=== PATIENT | female | born 1940 | race Caucasian/White ===

== ENCOUNTER 2020-05-07 21:33 | Emergency (ER) | payer MEDICARE ==
[~2020-05-07] VITALS: Ht 172.7 cm; Wt 80.7 kg
[2020-05-07 22:16] LABS: CLARITY,URINE CLEAR (CLEAR); COLOR,URINE YELLOW (YELLOW); KETONES,URINE TRACE (NEGATIVE); LEUKOCYTE ESTERASE ,URINE NEGATIVE (NEGATIVE); NITRITE,URINE NEGATIVE (NEGATIVE); PROTEIN,URINE DIPSTICK NEGATIVE (NEGATIVE); URINE UROBILINOGEN 0.2 mg/dL (0.2 - 1)
[2020-05-07 22:31] LABS: BACTERIA,URINE FEW /HPF; EPITHELIAL CELLS,URINE MODERATE /LPF; RBC,URINE 0-5 /HPF (0-5); WBC,URINE (MAN) 0-5 /HPF (0-5)
[2020-05-07] MEDS ORDERED: TETANUS/DIPHTHERIA TOX ADULT 0.5 ML SYR IM ONE (23:30)
[2020-05-08 00:49] VITALS: BP 149/70
== END 2020-05-08 00:50 | disposition home or self-care (01) ==
LOC: ER 21:35
DX: S62.666A Nondisplaced fracture of distal phalanx of right little finger, initial encounter for closed fracture (principal); M79.641 Pain in right hand; S00.83XA Contusion of other part of head, initial encounter; M25.512 Pain in left shoulder; M25.522 Pain in left elbow; M25.552 Pain in left hip; W05.0XXA Fall from non-moving wheelchair, initial encounter; Y92.098 Other place in other non-institutional residence as the place of occurrence of the external cause; I10 Essential (primary) hypertension; E11.9 Type 2 diabetes mellitus without complications; F41.9 Anxiety disorder, unspecified; K21.9 Gastro-esophageal reflux disease without esophagitis; F03.90 Unspecified dementia, unspecified severity, without behavioral disturbance, psychotic disturbance, mood disturbance, and anxiety
CPT/HCPCS: 70450; 72125; 81001; 90471; 90714; 93005; 99283

== ENCOUNTER 2020-08-20 22:33 | Inpatient (IN) | payer MEDICARE, OTHER ==
[~2020-08-20] VITALS: Ht 172.7 cm; Wt 80.7 kg
[2020-08-20] MEDS ORDERED: SODIUM CHLORIDE 0.9% 1000ML 1,000 ML IV STA (22:35)
[2020-08-20] MEDS ORDERED: PIPER-TAZ 3.375 GM 50 ML IV SCH (22:45)
[2020-08-20] MEDS ORDERED: SODIUM CHLORIDE 0.9% 1000ML 1,000 ML IV SCH (22:45)
[2020-08-20 23:00] LABS: BASOPHILS # (AUTO) 0.1 (0.0-0.1); BASOPHILS % 0.4 % (0.0-1.0); EOSINOPHILS # (AUTO) 0.1 (0.0-0.4); EOSINOPHILS % 0.5 % (0.0-6.0); HEMATOCRIT 36.2 % (34.2-44.1); HEMOGLOBIN 12.3 g/dL (12.0-16.0); LYMPHOCYTES # (AUTO) 3.1 (1.0-3.2); LYMPHOCYTES % 23.5 % (18.0-39.1); MEAN CORPUSCULAR HEMOGLOBIN 31.3 pg (28-32); MEAN CORPUSCULAR VOLUME 92.1 fL (81-99); MONOCYTES % 7.4 % (4.4-11.3); NEUTROPHILS # (AUTO) 8.8 (2.1-6.9); NEUTROPHILS % 67.7 % (38.7-80.0); PLATELET COUNT 421 x10e3/uL (140-360); RED BLOOD COUNT 3.93 x10e6/uL (3.6-5.1); RED CELL DISTRIBUTION WIDTH 12.1 % (11.7-14.4)
[2020-08-20] MEDS ORDERED: PIPERACILLIN/TAZOBAC 3.375 GM in SODIUM CHLORIDE 0.9% 50ML 50 ML IV ONE (23:00)
[2020-08-20 23:19] LABS: ALBUMIN 3.2 g/dL (3.5-5.0); ALBUMIN/GLOBULIN RATIO 0.7 (0.8-2.0); ANION GAP 23.3 mmol/L (8-16); CALCIUM 8.8 mg/dL (8.4-10.2); CREATININE, SERUM 2.5 mg/dL (0.57-1.11); POTASSIUM 4.3 mmol/L (3.5-5.1)
[2020-08-20 23:22] LABS: B-TYPE NATRIURETIC PEPTIDE2 56.9 pg/mL (0-100)
[2020-08-20 23:25] LABS: CREATINE KINASE MB 1.6 ng/mL (0-5.0)
[2020-08-20] MEDS ORDERED: SODIUM CHLORIDE 0.9% 1000ML 1,000 ML IV ONE (23:45)
[2020-08-21] MEDS ORDERED: ONDANSETRON HCL INJ 2MG/ML 2ML 2 MG/ML VIAL IV PRN (02:15)
[2020-08-21] MEDS ORDERED: MORPHINE SULFATE INJ 2 MG/ML SYR IV PRN (02:15)
[2020-08-21 02:41] LABS: CLARITY,URINE CLOUDY (CLEAR); COLOR,URINE YELLOW (YELLOW)
[2020-08-21 02:44] LABS: KETONES,URINE NEGATIVE (NEGATIVE); LEUKOCYTE ESTERASE ,URINE SMALL (NEGATIVE); NITRITE,URINE POSITIVE (NEGATIVE); PROTEIN,URINE DIPSTICK 1+ (NEGATIVE); URINE UROBILINOGEN 0.2 mg/dL (0.2 - 1)
[2020-08-21] MEDS ORDERED: SODIUM CHLORIDE 0.9% 1000ML 1,000 ML IV ONE (02:45)
[2020-08-21 02:48] LABS: BACTERIA,URINE MANY /HPF; EPITHELIAL CELLS,URINE FEW /LPF
[2020-08-21] MEDS: SODIUM CHLORIDE 0.9% 1000ML 1,000 ML IV SCH ×3 (04:46→19:02)
[2020-08-21] MEDS ORDERED: PIPERACILLIN/TAZOBAC 3.375 GM in SODIUM CHLORIDE 0.9% 50ML 50 ML IV SCH (06:00)
[2020-08-21] MEDS ORDERED: MIRTAZAPINE15 MG PO (11:47)
[2020-08-21] MEDS ORDERED: GABAPENTIN100 MG PO (11:47)
[2020-08-21] MEDS ORDERED: FAMOTIDINE40 MG PO (11:47)
[2020-08-21] MEDS ORDERED: METFORMIN HCL1000 MG PO (11:47)
[2020-08-21] MEDS ORDERED: LISINOPRIL10 MG PO (11:47)
[2020-08-21] MEDS ORDERED: SERTRALINE HCL50 MG PO (11:47)
[2020-08-21] MEDS ORDERED: FUROSEMIDE20 MG PO (11:47)
[2020-08-21] MEDS ORDERED: DONEPEZIL HCL10 MG PO (11:47)
[2020-08-21] MEDS ORDERED: GLIMEPIRIDE1 MG PO (11:47)
[2020-08-21] MEDS ORDERED: BUSPIRONE HCL7.5 MG PO (11:47)
[2020-08-21] MEDS ORDERED: DIVALPROEX SOD500 MG PO (11:47)
[2020-08-21] MEDS: PIPERACILLIN/TAZOBAC 3.375 GM in SODIUM CHLORIDE 0.9% 50ML 50 ML IV SCH ×4 (12:00→22:00)
[2020-08-21 13:59] VITALS: BP 161/90
[2020-08-21 15:08] VITALS: BP 161/90
[2020-08-21] MEDS: FUROSEMIDE 20 MG TAB PO SCH (16:26)
[2020-08-21] MEDS: DEPAKOTE DELAYED-RELEASE TAB 500 MG PO SCH (16:26)
[2020-08-21] MEDS: METFORMIN HCL 500 MG TAB PO SCH (16:27)
[2020-08-21] MEDS: LISINOPRIL 10 MG TAB PO SCH (16:27)
[2020-08-21 16:31] VITALS: BP 178/84
[2020-08-21 19:53] VITALS: BP 157/92
[2020-08-21 20:00] VITALS: BP 157/92
[2020-08-21] MEDS: GABAPENTIN 100 MG CAP PO SCH (22:46)
[2020-08-22] VITALS (9 sets, daily range): BP systolic 129–171; BP diastolic 57–96
[2020-08-22] MEDS: PIPERACILLIN/TAZOBAC 3.375 GM in SODIUM CHLORIDE 0.9% 50ML 50 ML IV SCH ×3 (06:15→21:23)
[2020-08-22 07:17] LABS: BASOPHILS % 0.3 % (0.0-1.0); EOSINOPHILS % 0.6 % (0.0-6.0); HEMOGLOBIN 10.2 g/dL (12.0-16.0); LYMPHOCYTES # (AUTO) 1.3 (1.0-3.2); LYMPHOCYTES % 19.5 % (18.0-39.1); MEAN CORPUSCULAR HEMOGLOBIN 31.2 pg (28-32); MEAN CORPUSCULAR VOLUME 91.7 fL (81-99); MONOCYTES # (AUTO) 0.6 (0.2-0.8); MONOCYTES % 9.6 % (4.4-11.3); NEUTROPHILS # (AUTO) 4.6 (2.1-6.9); NEUTROPHILS % 69.5 % (38.7-80.0); PLATELET COUNT 279 x10e3/uL (140-360); RED BLOOD COUNT 3.27 x10e6/uL (3.6-5.1); RED CELL DISTRIBUTION WIDTH 12.2 % (11.7-14.4)
[2020-08-22 07:38] LABS: ALBUMIN 2.5 g/dL (3.5-5.0); ALBUMIN/GLOBULIN RATIO 0.7 (0.8-2.0); ANION GAP 16.9 mmol/L (8-16); CALCIUM 7.8 mg/dL (8.4-10.2); CREATININE, SERUM 1.99 mg/dL (0.57-1.11); POTASSIUM 3.9 mmol/L (3.5-5.1)
[2020-08-22] MEDS: GABAPENTIN 100 MG CAP PO SCH ×3 (09:00→21:11)
[2020-08-22] MEDS: SERTRALINE HCL 50 MG TAB PO SCH (09:00)
[2020-08-22] MEDS: FUROSEMIDE 20 MG TAB PO SCH (09:00)
[2020-08-22] MEDS: FAMOTIDINE 20 MG TAB PO SCH (09:00)
[2020-08-22] MEDS: MIRTAZAPINE 15 MG TAB PO SCH (09:00)
[2020-08-22] MEDS: GLIMEPIRIDE 2 MG TAB PO SCH (09:00)
[2020-08-22] MEDS: METFORMIN HCL 500 MG TAB PO SCH ×2 (09:00→17:07)
[2020-08-22] MEDS: DEPAKOTE DELAYED-RELEASE TAB 500 MG PO SCH (09:00)
[2020-08-22] MEDS: BUSPIRONE HCL 5 MG TAB PO SCH (09:00)
[2020-08-22] MEDS: LISINOPRIL 10 MG TAB PO SCH (09:00)
[2020-08-22] MEDS: DONEPEZIL HCL 5 MG TAB PO SCH (09:00)
[2020-08-22] MEDS: SODIUM CHLORIDE 0.9% 1000ML 1,000 ML IV SCH ×3 (10:15→19:05)
[2020-08-22 12:12] LABS: CREATININE,URINE RANDOM 85.39 mg/dL (47-110); TOTAL PROTEIN, URINE 25.7 mg/dL (1-14)
[2020-08-22] MEDS: SODIUM BICARBONATE 650 MG TAB PO SCH (17:07)
[2020-08-22 23:13] LABS: CLARITY,URINE CLEAR (CLEAR); COLOR,URINE YELLOW (YELLOW); LEUKOCYTE ESTERASE ,URINE NEGATIVE (NEGATIVE); NITRITE,URINE NEGATIVE (NEGATIVE); PROTEIN,URINE DIPSTICK NEGATIVE (NEGATIVE)
[2020-08-22 23:14] LABS: BACTERIA,URINE FEW /HPF; EPITHELIAL CELLS,URINE MODERATE /LPF; KETONES,URINE NEGATIVE (NEGATIVE); RBC,URINE >50 /HPF (0-5); URINE UROBILINOGEN 0.2 mg/dL (0.2 - 1)
[2020-08-23] VITALS (8 sets, daily range): BP systolic 103–190; BP diastolic 60–85
[2020-08-23] MEDS: SODIUM CHLORIDE 0.9% 1000ML 1,000 ML IV SCH ×2 (04:42→09:42)
[2020-08-23] MEDS: PIPERACILLIN/TAZOBAC 3.375 GM in SODIUM CHLORIDE 0.9% 50ML 50 ML IV SCH ×3 (05:41→21:48)
[2020-08-23] MEDS: LISINOPRIL 10 MG TAB PO SCH (06:28)
[2020-08-23 07:00] LABS: ANION GAP 14.8 mmol/L (8-16); CALCIUM 7.9 mg/dL (8.4-10.2); CREATININE, SERUM 1.4 mg/dL (0.57-1.11); MAGNESIUM 1.4 MG/DL (1.3-2.1); PHOSPHORUS 2.9 MG/DL (2.3-4.7); POTASSIUM 3.8 mmol/L (3.5-5.1)
[2020-08-23] MEDS: GLIMEPIRIDE 2 MG TAB PO SCH (09:39)
[2020-08-23] MEDS: DONEPEZIL HCL 5 MG TAB PO SCH (09:39)
[2020-08-23] MEDS: METFORMIN HCL 500 MG TAB PO SCH ×2 (09:40→16:57)
[2020-08-23] MEDS: BUSPIRONE HCL 5 MG TAB PO SCH (09:40)
[2020-08-23] MEDS: DEPAKOTE DELAYED-RELEASE TAB 500 MG PO SCH (09:40)
[2020-08-23] MEDS: FUROSEMIDE 20 MG TAB PO SCH (09:40)
[2020-08-23] MEDS: GABAPENTIN 100 MG CAP PO SCH ×3 (09:41→20:58)
[2020-08-23] MEDS: FAMOTIDINE 20 MG TAB PO SCH (09:41)
[2020-08-23] MEDS: MIRTAZAPINE 15 MG TAB PO SCH (09:41)
[2020-08-23] MEDS: SERTRALINE HCL 50 MG TAB PO SCH (09:42)
[2020-08-23] MEDS: SODIUM BICARBONATE 650 MG TAB PO SCH ×2 (09:42→16:57)
[2020-08-23] MEDS: VANCOMYCIN HCL 125 MG CAPSULE PO SCH ×2 (12:30→16:57)
[2020-08-24] VITALS (10 sets, daily range): BP systolic 129–186; BP diastolic 54–131
[2020-08-24] MEDS: VANCOMYCIN HCL 125 MG CAPSULE PO SCH ×4 (00:33→18:06)
[2020-08-24] MEDS: SODIUM CHLORIDE 0.9% 1000ML 1,000 ML IV SCH ×2 (00:44→18:06)
[2020-08-24] MEDS: CLONIDINE HCL 0.1 MG TAB PO PRN ×2 (05:16→20:47)
[2020-08-24] MEDS: PIPERACILLIN/TAZOBAC 3.375 GM in SODIUM CHLORIDE 0.9% 50ML 50 ML IV SCH (05:38)
[2020-08-24 06:15] LABS: BASOPHILS % 0.5 % (0.0-1.0); EOSINOPHILS % 0.7 % (0.0-6.0); HEMATOCRIT 29.4 % (34.2-44.1); HEMOGLOBIN 10.2 g/dL (12.0-16.0); LYMPHOCYTES # (AUTO) 1.1 (1.0-3.2); LYMPHOCYTES % 25.5 % (18.0-39.1); MEAN CORPUSCULAR HEMOGLOBIN 31.3 pg (28-32); MEAN CORPUSCULAR HGB CONC 34.7 g/dL (31-35); MEAN CORPUSCULAR VOLUME 90.2 fL (81-99); MONOCYTES # (AUTO) 0.5 (0.2-0.8); MONOCYTES % 12.3 % (4.4-11.3); NEUTROPHILS # (AUTO) 2.6 (2.1-6.9); NEUTROPHILS % 60.5 % (38.7-80.0); PLATELET COUNT 206 x10e3/uL (140-360); RED BLOOD COUNT 3.26 x10e6/uL (3.6-5.1); RED CELL DISTRIBUTION WIDTH 11.9 % (11.7-14.4)
[2020-08-24 06:51] LABS: ANION GAP 10.6 mmol/L (8-16); CREATININE, SERUM 0.98 mg/dL (0.57-1.11); POTASSIUM 3.6 mmol/L (3.5-5.1)
[2020-08-24] MEDS: DEPAKOTE DELAYED-RELEASE TAB 500 MG PO SCH (09:20)
[2020-08-24] MEDS: DONEPEZIL HCL 5 MG TAB PO SCH (09:20)
[2020-08-24] MEDS: GLIMEPIRIDE 2 MG TAB PO SCH (09:20)
[2020-08-24] MEDS: BUSPIRONE HCL 5 MG TAB PO SCH (09:20)
[2020-08-24] MEDS: FUROSEMIDE 20 MG TAB PO SCH (09:21)
[2020-08-24] MEDS: GABAPENTIN 100 MG CAP PO SCH ×3 (09:21→21:54)
[2020-08-24] MEDS: FAMOTIDINE 20 MG TAB PO SCH (09:21)
[2020-08-24] MEDS: METFORMIN HCL 500 MG TAB PO SCH ×2 (09:21→18:06)
[2020-08-24] MEDS: SODIUM BICARBONATE 650 MG TAB PO SCH ×2 (09:22→18:06)
[2020-08-24] MEDS: LISINOPRIL 10 MG TAB PO SCH (09:22)
[2020-08-24] MEDS: MIRTAZAPINE 15 MG TAB PO SCH (09:22)
[2020-08-24] MEDS: SERTRALINE HCL 50 MG TAB PO SCH (09:22)
[2020-08-24] MEDS ORDERED: ONDANSETRON HCL 4 MG ORAL DISINTEGRATING TAB PO PRN (10:30)
[2020-08-25] VITALS (8 sets, daily range): BP systolic 130–172; BP diastolic 55–78
[2020-08-25] MEDS: SODIUM CHLORIDE 0.9% 1000ML 1,000 ML IV SCH ×2 (03:21→17:57)
[2020-08-25] MEDS: VANCOMYCIN HCL 125 MG CAPSULE PO SCH ×3 (06:00→11:44)
[2020-08-25 07:30] LABS: BASOPHILS % 0.2 % (0.0-1.0); EOSINOPHILS % 0.5 % (0.0-6.0); LYMPHOCYTES % 18.7 % (18.0-39.1); MEAN CORPUSCULAR HEMOGLOBIN 31.4 pg (28-32); MEAN CORPUSCULAR HGB CONC 34.6 g/dL (31-35); MEAN CORPUSCULAR VOLUME 90.6 fL (81-99); MONOCYTES # (AUTO) 0.9 (0.2-0.8); MONOCYTES % 15.6 % (4.4-11.3); NEUTROPHILS # (AUTO) 3.6 (2.1-6.9); NEUTROPHILS % 64.6 % (38.7-80.0); PLATELET COUNT 186 x10e3/uL (140-360); RED BLOOD COUNT 2.87 x10e6/uL (3.6-5.1)
[2020-08-25 07:53] LABS: ALANINE AMINOTRANSFERASE 6 IU/L (0-55); ALBUMIN 2.3 g/dL (3.5-5.0); ALBUMIN/GLOBULIN RATIO 0.7 (0.8-2.0); ALKALINE PHOSPHATASE 60 IU/L (40-150); ANION GAP 12.4 mmol/L (8-16); BLOOD UREA NITROGEN 16 mg/dL (7-26); BUN/CREATININE RATIO 22 (6-25); CALCIUM 7.7 mg/dL (8.4-10.2); CARBON DIOXIDE 24 mmol/L (22-29); CHLORIDE 105 mmol/L (98-107); CREATININE, SERUM 0.74 mg/dL (0.57-1.11); EST GLOMERULAR FILTRATION RATE > 60 ML/MIN (60-); GLUCOSE 128 mg/dL (74-118); MAGNESIUM 1.2 MG/DL (1.3-2.1); POTASSIUM 3.4 mmol/L (3.5-5.1); SODIUM 138 mmol/L (136-145)
[2020-08-25] MEDS: DONEPEZIL HCL 5 MG TAB PO SCH (09:14)
[2020-08-25] MEDS: GLIMEPIRIDE 2 MG TAB PO SCH (09:14)
[2020-08-25] MEDS: DEPAKOTE DELAYED-RELEASE TAB 500 MG PO SCH (09:15)
[2020-08-25] MEDS: FUROSEMIDE 20 MG TAB PO SCH (09:15)
[2020-08-25] MEDS: METFORMIN HCL 500 MG TAB PO SCH ×2 (09:15→15:52)
[2020-08-25] MEDS: BUSPIRONE HCL 5 MG TAB PO SCH (09:15)
[2020-08-25] MEDS: FAMOTIDINE 20 MG TAB PO SCH (09:16)
[2020-08-25] MEDS: GABAPENTIN 100 MG CAP PO SCH ×3 (09:16→21:00)
[2020-08-25] MEDS: SODIUM BICARBONATE 650 MG TAB PO SCH ×2 (09:16→15:52)
[2020-08-25] MEDS: SERTRALINE HCL 50 MG TAB PO SCH (09:16)
[2020-08-25] MEDS: MIRTAZAPINE 15 MG TAB PO SCH (09:16)
[2020-08-25] MEDS: LISINOPRIL 10 MG TAB PO SCH (09:17)
[2020-08-25] MEDS ORDERED: MAGNESIUM SULFATE 2GM/50ML 50 ML IV ONE ×2 (14:45→19:00)
[2020-08-25] MEDS ORDERED: POTASSIUM CHLORIDE 20 MEQ TAB CR PO NR (14:45)
[2020-08-26] VITALS: BP 145/81
[2020-08-26 04:00] VITALS: BP 159/75
[2020-08-26] MEDS: SODIUM CHLORIDE 0.9% 1000ML 1,000 ML IV SCH (06:01)
[2020-08-26 07:33] LABS: BASOPHILS % 0.3 % (0.0-1.0); EOSINOPHILS % 0.1 % (0.0-6.0); HEMATOCRIT 28.8 % (34.2-44.1); HEMOGLOBIN 9.9 g/dL (12.0-16.0); LYMPHOCYTES # (AUTO) 0.8 (1.0-3.2); LYMPHOCYTES % 10.3 % (18.0-39.1); MEAN CORPUSCULAR HEMOGLOBIN 31.2 pg (28-32); MEAN CORPUSCULAR HGB CONC 34.4 g/dL (31-35); MEAN CORPUSCULAR VOLUME 90.9 fL (81-99); MONOCYTES # (AUTO) 1.2 (0.2-0.8); MONOCYTES % 14.6 % (4.4-11.3); NEUTROPHILS # (AUTO) 5.9 (2.1-6.9); NEUTROPHILS % 74.3 % (38.7-80.0); PLATELET COUNT 192 x10e3/uL (140-360); RED BLOOD COUNT 3.17 x10e6/uL (3.6-5.1); RED CELL DISTRIBUTION WIDTH 12.3 % (11.7-14.4)
[2020-08-26 07:43] VITALS: BP 146/72
[2020-08-26 07:53] LABS: ALBUMIN 2.3 g/dL (3.5-5.0); ALBUMIN/GLOBULIN RATIO 0.6 (0.8-2.0); ALKALINE PHOSPHATASE 70 IU/L (40-150); ANION GAP 13.5 mmol/L (8-16); BLOOD UREA NITROGEN 10 mg/dL (7-26); BUN/CREATININE RATIO 15 (6-25); CALCIUM 8.1 mg/dL (8.4-10.2); CARBON DIOXIDE 22 mmol/L (22-29); CHLORIDE 106 mmol/L (98-107); CREATININE, SERUM 0.68 mg/dL (0.57-1.11); EST GLOMERULAR FILTRATION RATE > 60 ML/MIN (60-); GLUCOSE 131 mg/dL (74-118); MAGNESIUM 1.8 MG/DL (1.3-2.1); POTASSIUM 3.5 mmol/L (3.5-5.1); SODIUM 138 mmol/L (136-145)
[2020-08-26 08:10] LABS: ALANINE AMINOTRANSFERASE 9 IU/L (0-55)
[2020-08-26 08:38] VITALS: BP 146/72
[2020-08-26] MEDS: GLIMEPIRIDE 2 MG TAB PO SCH (09:05)
[2020-08-26] MEDS: DONEPEZIL HCL 5 MG TAB PO SCH (09:05)
[2020-08-26] MEDS: DEPAKOTE DELAYED-RELEASE TAB 500 MG PO SCH (09:05)
[2020-08-26] MEDS: BUSPIRONE HCL 5 MG TAB PO SCH (09:05)
[2020-08-26] MEDS: GABAPENTIN 100 MG CAP PO SCH ×2 (09:06→15:44)
[2020-08-26] MEDS: METFORMIN HCL 500 MG TAB PO SCH ×2 (09:06→15:44)
[2020-08-26] MEDS: FAMOTIDINE 20 MG TAB PO SCH (09:06)
[2020-08-26] MEDS: MIRTAZAPINE 15 MG TAB PO SCH (09:06)
[2020-08-26] MEDS: LISINOPRIL 10 MG TAB PO SCH (09:06)
[2020-08-26] MEDS: FUROSEMIDE 20 MG TAB PO SCH (09:06)
[2020-08-26] MEDS: SERTRALINE HCL 50 MG TAB PO SCH (09:07)
[2020-08-26] MEDS: SODIUM BICARBONATE 650 MG TAB PO SCH ×2 (09:07→15:44)
[2020-08-26 11:49] VITALS: BP 159/61
[2020-08-26 15:48] VITALS: BP 124/83
== END 2020-08-26 16:15 | DRG 871 ==
LOC: ER 22:53 → ERHOLD 08-21 02:07 → MED/SURG3 08-21 13:42
PROVIDERS: ADMIT Internal Medicine; ATTEND Internal Medicine
DX: A41.9 Sepsis, unspecified organism (principal); J18.9 Pneumonia, unspecified organism; N17.0 Acute kidney failure with tubular necrosis; N39.0 Urinary tract infection, site not specified; N17.9 Acute kidney failure, unspecified; E87.2 Acidosis; G93.49 Other encephalopathy; F03.91 Unspecified dementia, unspecified severity, with behavioral disturbance; F05 Delirium due to known physiological condition; R65.20 Severe sepsis without septic shock; E11.9 Type 2 diabetes mellitus without complications; E11.21 Type 2 diabetes mellitus with diabetic nephropathy; Z79.899 Other long term (current) drug therapy; F03.90 Unspecified dementia, unspecified severity, without behavioral disturbance, psychotic disturbance, mood disturbance, and anxiety; R19.7 Diarrhea, unspecified; Z20.822 Contact with and (suspected) exposure to COVID-19; K29.70 Gastritis, unspecified, without bleeding; E11.40 Type 2 diabetes mellitus with diabetic neuropathy, unspecified; D63.8 Anemia in other chronic diseases classified elsewhere
CPT/HCPCS: 36415; 51700; 70450; 71045; 76770; 80048; 80053; 81001; 82550; 82553; 82570; 82948; 83605; 83735; 83880; 84100; 84156; 84484; 85025; 87040; 87086; 87186; 87493; 93005; 96361; 99285; J2543; J3475; J7030; U0002

== ENCOUNTER 2020-10-02 17:20 | Inpatient (IN) | payer MEDICARE, OTHER ==
[~2020-10-02] VITALS: Ht 172.7 cm; Wt 80.7 kg
[~2020-10-02 17:20] MED LIST: BUSPIRONE HCL7.5 MG PO; DIVALPROEX SOD500 MG PO; DONEPEZIL HCL10 MG PO; FAMOTIDINE40 MG PO; FUROSEMIDE20 MG PO; GABAPENTIN100 MG PO; GLIMEPIRIDE1 MG PO; LISINOPRIL10 MG PO; METFORMIN HCL1000 MG PO; MIRTAZAPINE15 MG PO; SERTRALINE HCL50 MG PO
[2020-10-02] MEDS ORDERED: SODIUM CHLORIDE 0.9% 1000ML 1,000 ML IV STA (17:27)
[2020-10-02 18:06] LABS: BASOPHILS # (AUTO) 0.1 (0.0-0.1); BASOPHILS % 0.4 % (0.0-1.0); EOSINOPHILS % 0.2 % (0.0-6.0); HEMOGLOBIN 8.5 g/dL (12.0-16.0); LYMPHOCYTES # (AUTO) 1.9 (1.0-3.2); LYMPHOCYTES % 7.2 % (18.0-39.1); MEAN CORPUSCULAR HEMOGLOBIN 29.6 pg (28-32); MEAN CORPUSCULAR HGB CONC 30.4 g/dL (31-35); MEAN CORPUSCULAR VOLUME 97.6 fL (81-99); MONOCYTES # (AUTO) 1.3 (0.2-0.8); NEUTROPHILS # (AUTO) 21.3 (2.1-6.9); NEUTROPHILS % 81.3 % (38.7-80.0); PLATELET COUNT 509 x10e3/uL (140-360); RED BLOOD COUNT 2.87 x10e6/uL (3.6-5.1)
[2020-10-02 18:16] LABS: CLARITY,URINE SL CLOUDY (CLEAR); COLOR,URINE YELLOW (YELLOW); KETONES,URINE NEGATIVE (NEGATIVE); LEUKOCYTE ESTERASE ,URINE MODERATE (NEGATIVE); NITRITE,URINE NEGATIVE (NEGATIVE); PROTEIN,URINE DIPSTICK 1+ (NEGATIVE); URINE UROBILINOGEN 0.2 mg/dL (0.2 - 1)
[2020-10-02 18:28] LABS: ALANINE AMINOTRANSFERASE 11 IU/L (0-55); ALBUMIN 1.6 g/dL (3.5-5.0); ALBUMIN/GLOBULIN RATIO 0.3 (0.8-2.0); ALKALINE PHOSPHATASE 123 IU/L (40-150); BLOOD UREA NITROGEN 34 mg/dL (7-26); BUN/CREATININE RATIO 43 (6-25); CALCIUM 8.1 mg/dL (8.4-10.2); CARBON DIOXIDE 25 mmol/L (22-29); CHLORIDE 111 mmol/L (98-107); CREATINE KINASE 45 IU/L (29-168); EST GLOMERULAR FILTRATION RATE > 60 ML/MIN (60-); GLUCOSE 94 mg/dL (74-118); SODIUM 149 mmol/L (136-145)
[2020-10-02 18:31] LABS: BACTERIA,URINE MANY /HPF; EPITHELIAL CELLS,URINE FEW /LPF; WBC,URINE (MAN) >50 /HPF (0-5)
[2020-10-02] MEDS ORDERED: IOPAMIDOL 370 MG/ML 200 ML INFUS..BTL INJ ONE (19:12)
[2020-10-02] MEDS: PIPERACILLIN/TAZOBACTAM 3.375 GM in SODIUM CHLORIDE 0.9% 50ML 50 ML IV SCH (19:32)
[2020-10-02] MEDS ORDERED: SODIUM CHLORIDE 0.9% 1000ML 1,000 ML ONE (23:33)
[2020-10-03] VITALS (10 sets, daily range): BP systolic 103–182; BP diastolic 47–104
[2020-10-03] MEDS: PIPERACILLIN/TAZOBACTAM 3.375 GM in SODIUM CHLORIDE 0.9% 50ML 50 ML IV SCH ×5 (05:29→17:28)
[2020-10-03 06:12] LABS: BASOPHILS # (AUTO) 0.1 (0.0-0.1); BASOPHILS % 0.5 % (0.0-1.0); HEMOGLOBIN 8.6 g/dL (12.0-16.0); LYMPHOCYTES # (AUTO) 0.9 (1.0-3.2); LYMPHOCYTES % 3.9 % (18.0-39.1); MEAN CORPUSCULAR HEMOGLOBIN 29.5 pg (28-32); MEAN CORPUSCULAR HGB CONC 29.7 g/dL (31-35); MEAN CORPUSCULAR VOLUME 99.3 fL (81-99); MONOCYTES # (AUTO) 1.2 (0.2-0.8); NEUTROPHILS # (AUTO) 20.3 (2.1-6.9); NEUTROPHILS % 85.8 % (38.7-80.0); PLATELET COUNT 369 x10e3/uL (140-360); RED BLOOD COUNT 2.92 x10e6/uL (3.6-5.1); RED CELL DISTRIBUTION WIDTH 15.2 % (11.7-14.4)
[2020-10-03 06:38] LABS: CREATINE KINASE MB 1.2 ng/mL (0-5.0)
[2020-10-03 07:02] LABS: ALANINE AMINOTRANSFERASE 11 IU/L (0-55); ALBUMIN 1.6 g/dL (3.5-5.0); ALBUMIN/GLOBULIN RATIO 0.3 (0.8-2.0); ALKALINE PHOSPHATASE 119 IU/L (40-150); ANION GAP 16.8 mmol/L (8-16); BLOOD UREA NITROGEN 32 mg/dL (7-26); BUN/CREATININE RATIO 40 (6-25); CALCIUM 7.8 mg/dL (8.4-10.2); CARBON DIOXIDE 23 mmol/L (22-29); CHLORIDE 114 mmol/L (98-107); EST GLOMERULAR FILTRATION RATE > 60 ML/MIN (60-); GLUCOSE 111 mg/dL (74-118); POTASSIUM 3.8 mmol/L (3.5-5.1); SODIUM 150 mmol/L (136-145)
[2020-10-03] MEDS: INSULIN LISPRO 100 UNIT/1 ML 3ML VIAL SQ SCH ×4 (07:30→19:45)
[2020-10-03] MEDS ORDERED: NON-FORMULARY MEDICATION (Famotidine 40 MG) PO SCH (09:00)
[2020-10-03] MEDS: SODIUM CHLORIDE 0.9% 1000ML 1,000 ML IV SCH ×2 (09:15→22:32)
[2020-10-03] MEDS: GLIMEPIRIDE 2 MG TAB PO SCH (09:16)
[2020-10-03] MEDS: DONEPEZIL HCL 5 MG TAB PO SCH (09:16)
[2020-10-03] MEDS: METFORMIN HCL 500 MG TAB PO SCH ×2 (09:17→16:03)
[2020-10-03] MEDS: LISINOPRIL 10 MG TAB PO SCH (09:17)
[2020-10-03] MEDS: DEPAKOTE DELAYED-RELEASE TAB 500 MG PO SCH (09:17)
[2020-10-03] MEDS: SERTRALINE HCL 50 MG TAB PO SCH (09:18)
[2020-10-03] MEDS: VANCOMYCIN 1GM/NS 250 ML 250 ML IV SCH ×2 (12:00→22:41)
[2020-10-04] VITALS (8 sets, daily range): BP systolic 86–135; BP diastolic 40–103
[2020-10-04] MEDS: PIPERACILLIN/TAZOBACTAM 3.375 GM in SODIUM CHLORIDE 0.9% 50ML 50 ML IV SCH ×4 (00:04→16:23)
[2020-10-04] MEDS: INSULIN LISPRO 100 UNIT/1 ML 3ML VIAL SQ SCH ×4 (07:30→19:48)
[2020-10-04] MEDS: GLIMEPIRIDE 2 MG TAB PO SCH (08:58)
[2020-10-04] MEDS: DONEPEZIL HCL 5 MG TAB PO SCH (08:58)
[2020-10-04] MEDS: DEPAKOTE DELAYED-RELEASE TAB 500 MG PO SCH (08:59)
[2020-10-04] MEDS: SERTRALINE HCL 50 MG TAB PO SCH (08:59)
[2020-10-04] MEDS: METFORMIN HCL 500 MG TAB PO SCH ×2 (08:59→16:23)
[2020-10-04] MEDS: FAMOTIDINE 20 MG TAB PO SCH (08:59)
[2020-10-04 11:03] LABS: ALANINE AMINOTRANSFERASE 9 IU/L (0-55); ALBUMIN 1.3 g/dL (3.5-5.0); ALBUMIN/GLOBULIN RATIO 0.3 (0.8-2.0); ALKALINE PHOSPHATASE 103 IU/L (40-150); ANION GAP 12.5 mmol/L (8-16); BLOOD UREA NITROGEN 24 mg/dL (7-26); BUN/CREATININE RATIO 31 (6-25); CALCIUM 7.1 mg/dL (8.4-10.2); CARBON DIOXIDE 22 mmol/L (22-29); CHLORIDE 121 mmol/L (98-107); CREATININE, SERUM 0.78 mg/dL (0.57-1.11); EST GLOMERULAR FILTRATION RATE > 60 ML/MIN (60-); GLUCOSE 208 mg/dL (74-118); MAGNESIUM 1.8 MG/DL (1.3-2.1); POTASSIUM 3.5 mmol/L (3.5-5.1); SODIUM 152 mmol/L (136-145)
[2020-10-04] MEDS: LISINOPRIL 10 MG TAB PO SCH (11:30)
[2020-10-04 11:33] LABS: BASOPHILS # (AUTO) 0.1 (0.0-0.1); BASOPHILS % 0.2 % (0.0-1.0); EOSINOPHILS % 0.1 % (0.0-6.0); HEMATOCRIT 24.9 % (34.2-44.1); HEMOGLOBIN 7.4 g/dL (12.0-16.0); LYMPHOCYTES # (AUTO) 0.9 (1.0-3.2); LYMPHOCYTES % 3.3 % (18.0-39.1); MEAN CORPUSCULAR HEMOGLOBIN 29.4 pg (28-32); MEAN CORPUSCULAR HGB CONC 29.7 g/dL (31-35); MEAN CORPUSCULAR VOLUME 98.8 fL (81-99); MONOCYTES # (AUTO) 0.9 (0.2-0.8); MONOCYTES % 3.3 % (4.4-11.3); NEUTROPHILS # (AUTO) 24.6 (2.1-6.9); NEUTROPHILS % 90.5 % (38.7-80.0); PLATELET COUNT 471 x10e3/uL (140-360); RED BLOOD COUNT 2.52 x10e6/uL (3.6-5.1); RED CELL DISTRIBUTION WIDTH 15.5 % (11.7-14.4)
[2020-10-04 11:43] LABS: CREATINE KINASE MB 1.4 ng/mL (0-5.0)
[2020-10-04] MEDS: VANCOMYCIN 1GM/NS 250 ML 250 ML IV SCH ×2 (11:45→23:42)
[2020-10-04] MEDS: TRAMADOL HCL 50 MG TAB PO PRN (11:45)
[2020-10-04 12:12] LABS: BAND NEUTROPHILS % (MANUAL) 2 %; LYMPHOCYTES % (MANUAL) 2 % (19-48); MONOCYTES % (MANUAL) 2 % (3.4-9.0); NEUTROPHILS % (MANUAL) 94 % (40-74)
[2020-10-04] MEDS: SODIUM CHLORIDE 0.9% 1000ML 1,000 ML IV SCH (12:21)
[2020-10-04] MEDS ORDERED: DEXTROSE 5% 1,000 ML IV ONE (13:00)
[2020-10-04 18:28] LABS: ANION GAP 14.3 mmol/L (8-16); BLOOD UREA NITROGEN 24 mg/dL (7-26); BUN/CREATININE RATIO 30 (6-25); CALCIUM 7.5 mg/dL (8.4-10.2); CARBON DIOXIDE 22 mmol/L (22-29); CHLORIDE 119 mmol/L (98-107); EST GLOMERULAR FILTRATION RATE > 60 ML/MIN (60-); GLUCOSE 131 mg/dL (74-118); POTASSIUM 3.3 mmol/L (3.5-5.1); SODIUM 152 mmol/L (136-145)
[2020-10-04] MEDS ORDERED: DIPHENOXYLATE/ATROPINE TAB PO PRN (19:00)
[2020-10-04] MEDS: DEXTROSE 5% 1,000 ML IV SCH (19:15)
[2020-10-05] VITALS (8 sets, daily range): BP systolic 14–114; BP diastolic 46–72
[2020-10-05] MEDS: PIPERACILLIN/TAZOBACTAM 3.375 GM in SODIUM CHLORIDE 0.9% 50ML 50 ML IV SCH ×4 (00:40→17:39)
[2020-10-05] MEDS: TRAMADOL HCL 50 MG TAB PO PRN (00:41)
[2020-10-05] MEDS: DEXTROSE 5% 1,000 ML IV SCH ×3 (03:38→22:30)
[2020-10-05 05:53] LABS: BASOPHILS % 0.2 % (0.0-1.0); EOSINOPHILS # (AUTO) 0.1 (0.0-0.4); EOSINOPHILS % 0.3 % (0.0-6.0); HEMATOCRIT 23.9 % (34.2-44.1); LYMPHOCYTES # (AUTO) 1.1 (1.0-3.2); LYMPHOCYTES % 5.6 % (18.0-39.1); MEAN CORPUSCULAR HEMOGLOBIN 29.2 pg (28-32); MEAN CORPUSCULAR HGB CONC 29.3 g/dL (31-35); MEAN CORPUSCULAR VOLUME 99.6 fL (81-99); MONOCYTES # (AUTO) 0.8 (0.2-0.8); MONOCYTES % 3.9 % (4.4-11.3); NEUTROPHILS # (AUTO) 17.1 (2.1-6.9); NEUTROPHILS % 87.3 % (38.7-80.0); PLATELET COUNT 425 x10e3/uL (140-360); RED CELL DISTRIBUTION WIDTH 15.6 % (11.7-14.4)
[2020-10-05 06:18] LABS: ALANINE AMINOTRANSFERASE 12 IU/L (0-55); ALBUMIN 1.4 g/dL (3.5-5.0); ALBUMIN/GLOBULIN RATIO 0.3 (0.8-2.0); ALKALINE PHOSPHATASE 161 IU/L (40-150); ANION GAP 11.1 mmol/L (8-16); BLOOD UREA NITROGEN 21 mg/dL (7-26); BUN/CREATININE RATIO 28 (6-25); CALCIUM 7.6 mg/dL (8.4-10.2); CARBON DIOXIDE 25 mmol/L (22-29); CHLORIDE 117 mmol/L (98-107); CREATININE, SERUM 0.74 mg/dL (0.57-1.11); EST GLOMERULAR FILTRATION RATE > 60 ML/MIN (60-); GLUCOSE 175 mg/dL (74-118); POTASSIUM 3.1 mmol/L (3.5-5.1); SODIUM 150 mmol/L (136-145)
[2020-10-05 08:08] LABS: HYPOCHROMASIA SLIGHT; PLATELET ESTIMATE ADEQUATE; PLATELET MORPHOLOGY COMMENT NORMAL; RBC MORPHOLOGY COMMENT NORMAL
[2020-10-05] MEDS ORDERED: POTASSIUM CHLORIDE 20MEQ/100ML 200 ML IV ONE (08:30)
[2020-10-05] MEDS: FAMOTIDINE 20 MG TAB PO SCH (08:53)
[2020-10-05] MEDS: LISINOPRIL 10 MG TAB PO SCH (08:53)
[2020-10-05] MEDS: GLIMEPIRIDE 2 MG TAB PO SCH (08:53)
[2020-10-05] MEDS: DONEPEZIL HCL 5 MG TAB PO SCH (08:53)
[2020-10-05] MEDS: SERTRALINE HCL 50 MG TAB PO SCH (08:53)
[2020-10-05] MEDS: METFORMIN HCL 500 MG TAB PO SCH ×2 (08:53→16:51)
[2020-10-05] MEDS: DEPAKOTE DELAYED-RELEASE TAB 500 MG PO SCH (08:53)
[2020-10-05] MEDS: INSULIN LISPRO 100 UNIT/1 ML 3ML VIAL SQ SCH ×4 (08:55→21:00)
[2020-10-05] MEDS: COLLAGENASE 5 GM TUBE TOP SCH (16:51)
[2020-10-06] VITALS (9 sets, daily range): BP systolic 103–150; BP diastolic 43–81
[2020-10-06] MEDS: PIPERACILLIN/TAZOBACTAM 3.375 GM in SODIUM CHLORIDE 0.9% 50ML 50 ML IV SCH ×5 (00:35→23:19)
[2020-10-06] MEDS: DEXTROSE 5% 1,000 ML IV SCH ×3 (03:20→20:04)
[2020-10-06 06:29] LABS: BASOPHILS # (AUTO) 0.1 (0.0-0.1); BASOPHILS % 0.3 % (0.0-1.0); EOSINOPHILS # (AUTO) 0.1 (0.0-0.4); EOSINOPHILS % 0.4 % (0.0-6.0); HEMATOCRIT 28.1 % (34.2-44.1); HEMOGLOBIN 8.2 g/dL (12.0-16.0); LYMPHOCYTES # (AUTO) 1.5 (1.0-3.2); MEAN CORPUSCULAR HEMOGLOBIN 28.9 pg (28-32); MEAN CORPUSCULAR HGB CONC 29.2 g/dL (31-35); MEAN CORPUSCULAR VOLUME 98.9 fL (81-99); MONOCYTES # (AUTO) 1.2 (0.2-0.8); MONOCYTES % 4.8 % (4.4-11.3); NEUTROPHILS # (AUTO) 22.1 (2.1-6.9); PLATELET COUNT 342 x10e3/uL (140-360); RED BLOOD COUNT 2.84 x10e6/uL (3.6-5.1); RED CELL DISTRIBUTION WIDTH 15.7 % (11.7-14.4)
[2020-10-06 06:39] LABS: ALANINE AMINOTRANSFERASE 13 IU/L (0-55); ALBUMIN 1.5 g/dL (3.5-5.0); ALBUMIN/GLOBULIN RATIO 0.3 (0.8-2.0); ALKALINE PHOSPHATASE 176 IU/L (40-150); ANION GAP 15.2 mmol/L (8-16); BLOOD UREA NITROGEN 16 mg/dL (7-26); BUN/CREATININE RATIO 22 (6-25); CALCIUM 7.9 mg/dL (8.4-10.2); CARBON DIOXIDE 20 mmol/L (22-29); CHLORIDE 114 mmol/L (98-107); CREATININE, SERUM 0.73 mg/dL (0.57-1.11); EST GLOMERULAR FILTRATION RATE > 60 ML/MIN (60-); GLUCOSE 133 mg/dL (74-118); MAGNESIUM 1.8 MG/DL (1.3-2.1); POTASSIUM 4.2 mmol/L (3.5-5.1); SODIUM 145 mmol/L (136-145)
[2020-10-06 07:11] LABS: ANISOCYTOSIS SLIGHT; LYMPHOCYTES % (MANUAL) 6 % (19-48); MONOCYTES % (MANUAL) 4 % (3.4-9.0); MYELOCYTES % (MANUAL) 1 % (0-0); NEUTROPHILS % (MANUAL) 89 % (40-74); PLATELET ESTIMATE ADEQUATE; PLATELET MORPHOLOGY COMMENT NORMAL; RBC MORPHOLOGY COMMENT NORMAL
[2020-10-06] MEDS: INSULIN LISPRO 100 UNIT/1 ML 3ML VIAL SQ SCH ×4 (07:30→20:08)
[2020-10-06] MEDS: METFORMIN HCL 500 MG TAB PO SCH ×2 (09:00→16:48)
[2020-10-06] MEDS: DONEPEZIL HCL 5 MG TAB PO SCH (09:00)
[2020-10-06] MEDS: GLIMEPIRIDE 2 MG TAB PO SCH (09:00)
[2020-10-06] MEDS: SERTRALINE HCL 50 MG TAB PO SCH (09:00)
[2020-10-06] MEDS: DEPAKOTE DELAYED-RELEASE TAB 500 MG PO SCH (09:00)
[2020-10-06] MEDS: LISINOPRIL 10 MG TAB PO SCH (09:00)
[2020-10-06] MEDS: FAMOTIDINE 20 MG TAB PO SCH (09:00)
[2020-10-06] MEDS: COLLAGENASE 5 GM TUBE TOP SCH (09:00)
[2020-10-06] MEDS: VANCOMYCIN 1GM/NS 250 ML 250 ML IV SCH (11:37)
[2020-10-07] VITALS (8 sets, daily range): BP systolic 120–155; BP diastolic 65–105
[2020-10-07] MEDS: DEXTROSE 5% 1,000 ML IV SCH ×3 (00:40→11:00)
[2020-10-07] MEDS: PIPERACILLIN/TAZOBACTAM 3.375 GM in SODIUM CHLORIDE 0.9% 50ML 50 ML IV SCH ×3 (05:44→21:40)
[2020-10-07 05:45] LABS: BASOPHILS % 0.2 % (0.0-1.0); EOSINOPHILS # (AUTO) 0.1 (0.0-0.4); EOSINOPHILS % 0.7 % (0.0-6.0); HEMATOCRIT 24.3 % (34.2-44.1); HEMOGLOBIN 7.5 g/dL (12.0-16.0); LYMPHOCYTES # (AUTO) 1.3 (1.0-3.2); LYMPHOCYTES % 9.5 % (18.0-39.1); MEAN CORPUSCULAR HEMOGLOBIN 30.1 pg (28-32); MEAN CORPUSCULAR HGB CONC 30.9 g/dL (31-35); MEAN CORPUSCULAR VOLUME 97.6 fL (81-99); MONOCYTES # (AUTO) 0.7 (0.2-0.8); MONOCYTES % 5.5 % (4.4-11.3); NEUTROPHILS # (AUTO) 10.7 (2.1-6.9); NEUTROPHILS % 79.9 % (38.7-80.0); RED BLOOD COUNT 2.49 x10e6/uL (3.6-5.1); RED CELL DISTRIBUTION WIDTH 15.6 % (11.7-14.4)
[2020-10-07] MEDS ORDERED: ENALAPRILAT IV INJ 1.25 MG/ML VIAL IV PRN (05:45)
[2020-10-07 05:55] LABS: ALANINE AMINOTRANSFERASE 9 IU/L (0-55); ALBUMIN 1.2 g/dL (3.5-5.0); ALBUMIN/GLOBULIN RATIO 0.3 (0.8-2.0); ALKALINE PHOSPHATASE 137 IU/L (40-150); ANION GAP 11.1 mmol/L (8-16); BLOOD UREA NITROGEN 12 mg/dL (7-26); BUN/CREATININE RATIO 16 (6-25); CALCIUM 7.8 mg/dL (8.4-10.2); CARBON DIOXIDE 24 mmol/L (22-29); CHLORIDE 110 mmol/L (98-107); CREATININE, SERUM 0.73 mg/dL (0.57-1.11); EST GLOMERULAR FILTRATION RATE > 60 ML/MIN (60-); GLUCOSE 187 mg/dL (74-118); POTASSIUM 4.1 mmol/L (3.5-5.1); SODIUM 141 mmol/L (136-145)
[2020-10-07 06:38] LABS: PLATELET COUNT 402 x10e3/uL (140-360)
[2020-10-07] MEDS: INSULIN LISPRO 100 UNIT/1 ML 3ML VIAL SQ SCH ×4 (07:30→21:00)
[2020-10-07] MEDS: DONEPEZIL HCL 5 MG TAB PO SCH (09:00)
[2020-10-07] MEDS: GLIMEPIRIDE 2 MG TAB PO SCH (09:00)
[2020-10-07] MEDS: SERTRALINE HCL 50 MG TAB PO SCH (09:00)
[2020-10-07] MEDS: COLLAGENASE 5 GM TUBE TOP SCH (09:00)
[2020-10-07] MEDS: METFORMIN HCL 500 MG TAB PO SCH ×2 (09:00→17:00)
[2020-10-07] MEDS ORDERED: LIDOCAINE HCL 2% LOCAL INJ 5 ML SDV VIAL INJ ONE (11:27)
[2020-10-07] MEDS ORDERED: POVIDONE IODINE 0.05% 0.05 % ML PO ONE (11:27)
[2020-10-07] MEDS ORDERED: PROPOFOL IV EMULSION 10 MG/ML 20 ML VIAL ONE (11:27)
[2020-10-07] MEDS ORDERED: FENTANYL CITRATE/PF 100MCG/2 ML INJ ONE (13:34)
[2020-10-07] MEDS: VALPROATE SOD INJ 500 MG in SODIUM CHLORIDE 0.9% 100 ML 100 ML INJ SCH (17:56)
[2020-10-07] MEDS: VANCOMYCIN 1GM/NS 250 ML 250 ML IV SCH (19:14)
[2020-10-08] VITALS (7 sets, daily range): BP systolic 124–143; BP diastolic 52–69
[2020-10-08] MEDS: PIPERACILLIN/TAZOBACTAM 3.375 GM in SODIUM CHLORIDE 0.9% 50ML 50 ML IV SCH ×4 (00:59→20:49)
[2020-10-08 06:28] LABS: BASOPHILS % 0.2 % (0.0-1.0); EOSINOPHILS # (AUTO) 0.2 (0.0-0.4); EOSINOPHILS % 1.4 % (0.0-6.0); LYMPHOCYTES # (AUTO) 1.2 (1.0-3.2); LYMPHOCYTES % 10.6 % (18.0-39.1); MEAN CORPUSCULAR HEMOGLOBIN 29.6 pg (28-32); MEAN CORPUSCULAR HGB CONC 30.9 g/dL (31-35); MEAN CORPUSCULAR VOLUME 95.7 fL (81-99); MONOCYTES # (AUTO) 0.6 (0.2-0.8); MONOCYTES % 5.3 % (4.4-11.3); NEUTROPHILS # (AUTO) 8.7 (2.1-6.9); NEUTROPHILS % 78.1 % (38.7-80.0); PLATELET COUNT 395 x10e3/uL (140-360); RED CELL DISTRIBUTION WIDTH 15.5 % (11.7-14.4)
[2020-10-08 06:45] LABS: ALANINE AMINOTRANSFERASE 6 IU/L (0-55); ALBUMIN 1.2 g/dL (3.5-5.0); ALBUMIN/GLOBULIN RATIO 0.3 (0.8-2.0); ALKALINE PHOSPHATASE 113 IU/L (40-150); ANION GAP 10.8 mmol/L (8-16); BLOOD UREA NITROGEN 9 mg/dL (7-26); BUN/CREATININE RATIO 13 (6-25); CALCIUM 7.6 mg/dL (8.4-10.2); CARBON DIOXIDE 25 mmol/L (22-29); CHLORIDE 110 mmol/L (98-107); CREATININE, SERUM 0.67 mg/dL (0.57-1.11); EST GLOMERULAR FILTRATION RATE > 60 ML/MIN (60-); GLUCOSE 165 mg/dL (74-118); MAGNESIUM 1.6 MG/DL (1.3-2.1); POTASSIUM 3.8 mmol/L (3.5-5.1); SODIUM 142 mmol/L (136-145)
[2020-10-08 06:56] LABS: HEMOGLOBIN 6.8 g/dL (12.0-16.0)
[2020-10-08] MEDS ORDERED: SODIUM CHLORIDE 0.9% 250ML 250 ML IV ONE (07:15)
[2020-10-08] MEDS: INSULIN LISPRO 100 UNIT/1 ML 3ML VIAL SQ SCH ×4 (07:30→20:50)
[2020-10-08] MEDS: DONEPEZIL HCL 5 MG TAB PO SCH (09:00)
[2020-10-08] MEDS: COLLAGENASE 5 GM TUBE TOP SCH (09:00)
[2020-10-08] MEDS: GLIMEPIRIDE 2 MG TAB PO SCH (09:00)
[2020-10-08] MEDS: METFORMIN HCL 500 MG TAB PO SCH ×2 (09:00→17:00)
[2020-10-08] MEDS: SERTRALINE HCL 50 MG TAB PO SCH (09:00)
[2020-10-08] MEDS: VALPROATE SOD INJ 500 MG in SODIUM CHLORIDE 0.9% 100 ML 100 ML INJ SCH (10:58)
[2020-10-08] MEDS: DEXTROSE 5% 1,000 ML IV SCH ×2 (11:00→11:09)
[2020-10-08] MEDS ORDERED: SODIUM CHLORIDE 0.9% 250ML 250 ML ONE (11:12)
[2020-10-08] MEDS: VANCOMYCIN 1GM/NS 250 ML 250 ML IV SCH (18:42)
[2020-10-09] VITALS (7 sets, daily range): BP systolic 125–152; BP diastolic 53–86
[2020-10-09] MEDS: PIPERACILLIN/TAZOBACTAM 3.375 GM in SODIUM CHLORIDE 0.9% 50ML 50 ML IV SCH ×4 (02:00→20:00)
[2020-10-09] MEDS: DEXTROSE 5% 1,000 ML IV SCH ×3 (04:01→11:30)
[2020-10-09 05:55] LABS: BASOPHILS % 0.1 % (0.0-1.0); EOSINOPHILS # (AUTO) 0.1 (0.0-0.4); EOSINOPHILS % 1.3 % (0.0-6.0); LYMPHOCYTES # (AUTO) 1.2 (1.0-3.2); LYMPHOCYTES % 13.2 % (18.0-39.1); MEAN CORPUSCULAR HEMOGLOBIN 28.8 pg (28-32); MEAN CORPUSCULAR HGB CONC 31.5 g/dL (31-35); MONOCYTES # (AUTO) 0.6 (0.2-0.8); MONOCYTES % 6.8 % (4.4-11.3); NEUTROPHILS # (AUTO) 6.6 (2.1-6.9); NEUTROPHILS % 73.9 % (38.7-80.0); PLATELET COUNT 297 x10e3/uL (140-360); RED BLOOD COUNT 2.36 x10e6/uL (3.6-5.1); RED CELL DISTRIBUTION WIDTH 15.4 % (11.7-14.4)
[2020-10-09 06:26] LABS: HEMATOCRIT 21.6 % (34.2-44.1); HEMOGLOBIN 6.8 g/dL (12.0-16.0); MEAN CORPUSCULAR VOLUME 91.5 fL (81-99)
[2020-10-09 06:31] LABS: ALBUMIN/GLOBULIN RATIO 0.3 (0.8-2.0); ALKALINE PHOSPHATASE 88 IU/L (40-150); ANION GAP 7.8 mmol/L (8-16); BLOOD UREA NITROGEN 6 mg/dL (7-26); BUN/CREATININE RATIO 8 (6-25); CARBON DIOXIDE 25 mmol/L (22-29); CHLORIDE 105 mmol/L (98-107); CREATININE, SERUM 0.71 mg/dL (0.57-1.11); EST GLOMERULAR FILTRATION RATE > 60 ML/MIN (60-); GLUCOSE 372 mg/dL (74-118); SODIUM 135 mmol/L (136-145)
[2020-10-09 06:47] LABS: ALANINE AMINOTRANSFERASE < 6 IU/L (0-55)
[2020-10-09 06:49] LABS: CALCIUM 6.8 mg/dL (8.4-10.2); POTASSIUM 2.8 mmol/L (3.5-5.1)
[2020-10-09] MEDS ORDERED: SODIUM CHLORIDE 0.9% 250ML 250 ML IV ONE (06:50)
[2020-10-09] MEDS: INSULIN LISPRO 100 UNIT/1 ML 3ML VIAL SQ SCH ×4 (07:30→20:15)
[2020-10-09] MEDS ORDERED: POTASSIUM CHLORIDE 20MEQ/100ML 300 ML IV ONE (08:00)
[2020-10-09] MEDS ORDERED: CALCIUM GLUCONATE 10% INJ 4.65 MEQ in SODIUM CHLORIDE 0.9% 50ML 50 ML IV ONE (08:00)
[2020-10-09] MEDS: METFORMIN HCL 500 MG TAB PO SCH ×2 (09:00→17:00)
[2020-10-09] MEDS: GLIMEPIRIDE 2 MG TAB PO SCH (09:00)
[2020-10-09] MEDS: SERTRALINE HCL 50 MG TAB PO SCH (09:00)
[2020-10-09] MEDS: DONEPEZIL HCL 5 MG TAB PO SCH (09:00)
[2020-10-09] MEDS: VALPROATE SOD INJ 500 MG in SODIUM CHLORIDE 0.9% 100 ML 100 ML INJ SCH (10:27)
[2020-10-09] MEDS: COLLAGENASE 5 GM TUBE TOP SCH (11:53)
[2020-10-09] MEDS ORDERED: PROPOFOL IV EMULSION 10 MG/ML 20 ML VIAL ONE (12:00)
[2020-10-09] MEDS ORDERED: POVIDONE IODINE 0.05% 0.05 % ML PO ONE (12:00)
[2020-10-09] MEDS: VANCOMYCIN 1GM/NS 250 ML 250 ML IV SCH (23:00)
[2020-10-09] MEDS ORDERED: SODIUM CHLORIDE 0.9% 250ML 250 ML ONE (23:59)
[2020-10-10] VITALS (8 sets, daily range): BP systolic 118–152; BP diastolic 62–96
[2020-10-10] MEDS: PIPERACILLIN/TAZOBACTAM 3.375 GM in SODIUM CHLORIDE 0.9% 50ML 50 ML IV SCH ×4 (02:47→20:06)
[2020-10-10] MEDS: DEXTROSE 5% 1,000 ML IV SCH ×5 (05:22→22:58)
[2020-10-10] MEDS: INSULIN LISPRO 100 UNIT/1 ML 3ML VIAL SQ SCH ×4 (07:30→20:28)
[2020-10-10] MEDS: DONEPEZIL HCL 5 MG TAB PO SCH (09:00)
[2020-10-10] MEDS: SERTRALINE HCL 50 MG TAB PO SCH (09:00)
[2020-10-10] MEDS: GLIMEPIRIDE 2 MG TAB PO SCH (09:00)
[2020-10-10] MEDS: METFORMIN HCL 500 MG TAB PO SCH ×2 (09:00→17:00)
[2020-10-10] MEDS: VALPROATE SOD INJ 500 MG in SODIUM CHLORIDE 0.9% 100 ML 100 ML INJ SCH (09:00)
[2020-10-10] MEDS: COLLAGENASE 5 GM TUBE TOP SCH (14:00)
[2020-10-11] VITALS (8 sets, daily range): BP systolic 107–157; BP diastolic 62–103
[2020-10-11] MEDS: PIPERACILLIN/TAZOBACTAM 3.375 GM in SODIUM CHLORIDE 0.9% 50ML 50 ML IV SCH ×4 (02:25→20:14)
[2020-10-11 06:25] LABS: BASOPHILS % 0.2 % (0.0-1.0); EOSINOPHILS # (AUTO) 0.1 (0.0-0.4); EOSINOPHILS % 1.3 % (0.0-6.0); HEMATOCRIT 28.1 % (34.2-44.1); HEMOGLOBIN 9.2 g/dL (12.0-16.0); LYMPHOCYTES # (AUTO) 1.3 (1.0-3.2); LYMPHOCYTES % 11.7 % (18.0-39.1); MEAN CORPUSCULAR HGB CONC 32.7 g/dL (31-35); MEAN CORPUSCULAR VOLUME 91.5 fL (81-99); MONOCYTES # (AUTO) 0.7 (0.2-0.8); MONOCYTES % 6.6 % (4.4-11.3); NEUTROPHILS # (AUTO) 8.5 (2.1-6.9); NEUTROPHILS % 78.5 % (38.7-80.0); PLATELET COUNT 281 x10e3/uL (140-360); RED BLOOD COUNT 3.07 x10e6/uL (3.6-5.1); RED CELL DISTRIBUTION WIDTH 15.4 % (11.7-14.4)
[2020-10-11 06:52] LABS: ALANINE AMINOTRANSFERASE 6 IU/L (0-55); ALBUMIN 1.2 g/dL (3.5-5.0); ALBUMIN/GLOBULIN RATIO 0.3 (0.8-2.0); ALKALINE PHOSPHATASE 100 IU/L (40-150); ANION GAP 8.3 mmol/L (8-16); BLOOD UREA NITROGEN < 5 mg/dL (7-26); CALCIUM 7.3 mg/dL (8.4-10.2); CARBON DIOXIDE 25 mmol/L (22-29); CHLORIDE 108 mmol/L (98-107); CREATININE, SERUM 0.72 mg/dL (0.57-1.11); EST GLOMERULAR FILTRATION RATE > 60 ML/MIN (60-); GLUCOSE 153 mg/dL (74-118); POTASSIUM 3.3 mmol/L (3.5-5.1); SODIUM 138 mmol/L (136-145)
[2020-10-11 07:08] LABS: BUN/CREATININE RATIO 7 (6-25)
[2020-10-11] MEDS: INSULIN LISPRO 100 UNIT/1 ML 3ML VIAL SQ SCH ×4 (07:30→20:01)
[2020-10-11] MEDS: GLIMEPIRIDE 2 MG TAB PO SCH (09:05)
[2020-10-11] MEDS: VALPROATE SOD INJ 500 MG in SODIUM CHLORIDE 0.9% 100 ML 100 ML INJ SCH (09:05)
[2020-10-11] MEDS: DONEPEZIL HCL 5 MG TAB PO SCH (09:06)
[2020-10-11] MEDS: METFORMIN HCL 500 MG TAB PO SCH ×2 (09:06→17:18)
[2020-10-11] MEDS: SERTRALINE HCL 50 MG TAB PO SCH (09:06)
[2020-10-11] MEDS ORDERED: KCL 20 MEQ PACKET/ ORAL SOLN NG NR (11:00)
[2020-10-11] MEDS: DEXTROSE 5% 1,000 ML IV SCH ×2 (11:13→20:14)
[2020-10-11] MEDS: COLLAGENASE 5 GM TUBE TOP SCH (12:21)
[2020-10-11] MEDS: VANCOMYCIN 1GM/NS 250 ML 250 ML IV SCH (14:14)
[2020-10-12] VITALS (9 sets, daily range): BP systolic 116–159; BP diastolic 61–96
[2020-10-12] MEDS: PIPERACILLIN/TAZOBACTAM 3.375 GM in SODIUM CHLORIDE 0.9% 50ML 50 ML IV SCH ×4 (02:21→21:13)
[2020-10-12] MEDS: DEXTROSE 5% 1,000 ML IV SCH ×3 (04:27→21:13)
[2020-10-12] MEDS: INSULIN LISPRO 100 UNIT/1 ML 3ML VIAL SQ SCH ×4 (07:30→21:00)
[2020-10-12] MEDS: GLIMEPIRIDE 2 MG TAB PO SCH (08:59)
[2020-10-12] MEDS: VALPROATE SOD INJ 500 MG in SODIUM CHLORIDE 0.9% 100 ML 100 ML INJ SCH (09:00)
[2020-10-12] MEDS: METFORMIN HCL 500 MG TAB PO SCH ×2 (09:00→17:00)
[2020-10-12] MEDS: SERTRALINE HCL 50 MG TAB PO SCH (09:00)
[2020-10-12] MEDS: DONEPEZIL HCL 5 MG TAB PO SCH (09:00)
[2020-10-12] MEDS: VANCOMYCIN 1GM/NS 250 ML 250 ML IV SCH (13:05)
[2020-10-12] MEDS: COLLAGENASE 5 GM TUBE TOP SCH (16:00)
[2020-10-13] MEDS: PIPERACILLIN/TAZOBACTAM 3.375 GM in SODIUM CHLORIDE 0.9% 50ML 50 ML IV SCH ×3 (02:27→14:00)
[2020-10-13 05:23] VITALS: BP 131/57
[2020-10-13 05:55] LABS: BASOPHILS % 0.2 % (0.0-1.0); EOSINOPHILS # (AUTO) 0.1 (0.0-0.4); HEMATOCRIT 26.8 % (34.2-44.1); HEMOGLOBIN 8.5 g/dL (12.0-16.0); LYMPHOCYTES % 9.6 % (18.0-39.1); MEAN CORPUSCULAR HEMOGLOBIN 29.3 pg (28-32); MEAN CORPUSCULAR HGB CONC 31.7 g/dL (31-35); MEAN CORPUSCULAR VOLUME 92.4 fL (81-99); MONOCYTES # (AUTO) 0.6 (0.2-0.8); MONOCYTES % 5.8 % (4.4-11.3); NEUTROPHILS # (AUTO) 8.6 (2.1-6.9); PLATELET COUNT 248 x10e3/uL (140-360); RED CELL DISTRIBUTION WIDTH 15.4 % (11.7-14.4)
[2020-10-13 06:22] LABS: ALBUMIN 1.1 g/dL (3.5-5.0); ALBUMIN/GLOBULIN RATIO 0.3 (0.8-2.0); ALKALINE PHOSPHATASE 96 IU/L (40-150); ANION GAP 9.8 mmol/L (8-16); BLOOD UREA NITROGEN 8 mg/dL (7-26); BUN/CREATININE RATIO 11 (6-25); CALCIUM 7.1 mg/dL (8.4-10.2); CARBON DIOXIDE 23 mmol/L (22-29); CHLORIDE 108 mmol/L (98-107); CREATININE, SERUM 0.76 mg/dL (0.57-1.11); EST GLOMERULAR FILTRATION RATE > 60 ML/MIN (60-); GLUCOSE 152 mg/dL (74-118); POTASSIUM 3.8 mmol/L (3.5-5.1); SODIUM 137 mmol/L (136-145)
[2020-10-13 07:19] LABS: ALANINE AMINOTRANSFERASE < 6 IU/L (0-55)
[2020-10-13] MEDS: DEXTROSE 5% 1,000 ML IV SCH ×2 (07:25→11:00)
[2020-10-13] MEDS: INSULIN LISPRO 100 UNIT/1 ML 3ML VIAL SQ SCH ×3 (07:30→16:30)
[2020-10-13 08:14] VITALS: BP 112/64
[2020-10-13] MEDS: METFORMIN HCL 500 MG TAB PO SCH ×2 (08:51→16:47)
[2020-10-13] MEDS: GLIMEPIRIDE 2 MG TAB PO SCH (08:51)
[2020-10-13] MEDS: DONEPEZIL HCL 5 MG TAB PO SCH (08:51)
[2020-10-13] MEDS: SERTRALINE HCL 50 MG TAB PO SCH (08:51)
[2020-10-13 08:52] VITALS: BP 112/64
[2020-10-13] MEDS: VALPROATE SOD INJ 500 MG in SODIUM CHLORIDE 0.9% 100 ML 100 ML INJ SCH (09:00)
[2020-10-13] MEDS: COLLAGENASE 5 GM TUBE TOP SCH (09:00)
[2020-10-13 12:10] VITALS: BP 121/73
[2020-10-13] MEDS: VANCOMYCIN 1GM/NS 250 ML 250 ML IV SCH (13:15)
[2020-10-13 15:53] VITALS: BP 140/74
== END 2020-10-13 17:58 | DRG 853 ==
LOC: ER 19:24 → ERHOLD 19:25 → MED/SURG3 20:28
PROVIDERS: ADMIT Internal Medicine; ATTEND Internal Medicine
PROC: 0KBN0ZZ Excision of Right Hip Muscle, Open Approach (ICD-10-PCS; 2020-10-07)
PROC: 02HV33Z Insertion of Infusion Device into Superior Vena Cava, Percutaneous Approach (ICD-10-PCS; 2020-10-07)
PROC: 30243N1 Transfusion of Nonautologous Red Blood Cells into Central Vein, Percutaneous Approach (ICD-10-PCS; 2020-10-08)
PROC: 0DB78ZX Excision of Stomach, Pylorus, Via Natural or Artificial Opening Endoscopic, Diagnostic (ICD-10-PCS; 2020-10-09)
PROC: 0DH68UZ Insertion of Feeding Device into Stomach, Via Natural or Artificial Opening Endoscopic (ICD-10-PCS; principal; 2020-10-09 15:00)
DX: A41.9 Sepsis, unspecified organism (principal); L89.624 Pressure ulcer of left heel, stage 4; L89.154 Pressure ulcer of sacral region, stage 4; G92 Toxic encephalopathy; J18.9 Pneumonia, unspecified organism; J69.0 Pneumonitis due to inhalation of food and vomit; T83.518A Infection and inflammatory reaction due to other urinary catheter, initial encounter; M86.8X8 Other osteomyelitis, other site; M48.56XA Collapsed vertebra, not elsewhere classified, lumbar region, initial encounter for fracture; E44.0 Moderate protein-calorie malnutrition; E11.52 Type 2 diabetes mellitus with diabetic peripheral angiopathy with gangrene; I96 Gangrene, not elsewhere classified; E11.69 Type 2 diabetes mellitus with other specified complication; L89.612 Pressure ulcer of right heel, stage 2; Z95.0 Presence of cardiac pacemaker; K31.7 Polyp of stomach and duodenum; Z68.27 Body mass index [BMI] 27.0-27.9, adult; E87.6 Hypokalemia; D64.9 Anemia, unspecified; H91.90 Unspecified hearing loss, unspecified ear
CPT/HCPCS: 36415; 36569; 43239; 43246; 51700; 71045; 74177; 80048; 80053; 80202; 81001; 82550; 82553; 82948; 83605; 83735; 83880; 84484; 85025; 86850; 86900; 86920; 87040; 87071; 87186; 87205; 87493; 88305; 88312; 93005; 96360; 96361; 99251; 99284; J0610; J2001; J2543; J3010; J3370; J3480; J7030; J7050; J7070; P9016; Q9967; U0002